=== PATIENT | male | born 1980 | race Caucasian/White ===

== ENCOUNTER 2019-04-15 18:51 | Emergency (ER) | payer BC, OTHER, SELFPAY ==
[2019-04-15] MEDS ORDERED: Lidocaine 1% (PF) 30 ML VIAL ONE (20:04)
--- NOTE | 2019-04-15 20:13 | RAD ---
LEFT HAND: 04/15/19 Three views. HISTORY: Injury to distal left second finger. There has been amputation of the distal aspect of the index finger. There is a fracture of the distal phalanx. The tuft has been amputated. No other osseous abnormality. IMPRESSION: Amputation of the distal aspect of the index finger with associated amputation of the tuft of the dis katia phalanx and fracture of the remaining portion of the distal phalanx. POS: OFF
[2019-04-15] MEDS ORDERED: Morphine 4 MG/ML VIAL ONE (21:09)
[2019-04-15] MEDS ORDERED: Ondansetron PF 4 MG/2 ML Vial ONE (21:09)
[2019-04-15] MEDS ORDERED: Adacel (T-DAP) 0.5 ML SYRINGE ONE (21:13)
== END 2019-04-15 21:35 | disposition home or self-care (01) ==
LOC: ERS 18:51
DX: S68.111A Complete traumatic metacarpophalangeal amputation of left index finger, initial encounter (principal); F32.9 Major depressive disorder, single episode, unspecified; W27.0XXA Contact with workbench tool, initial encounter
CPT/HCPCS: 90715; 96374; 96375; J0690; J2001; J2270; J2405

== ENCOUNTER 2019-04-16 06:38 | Day surgery (SDC) | payer OTHER ==
[2019-04-16] MEDS ORDERED: Fentanyl 100 MCG/2 ML VIAL ONE ×3 (08:03→12:52)
[2019-04-16] MEDS ORDERED: PROPOFOL 200 MG/20 ML VIAL ONE (10:31)
[2019-04-16] MEDS ORDERED: Dexamethasone 20 MG/5 ML VIAL ONE (10:31)
[2019-04-16] MEDS ORDERED: Ketorolac Tromethamine 30 MG/ML VIAL ONE (10:31)
[2019-04-16] MEDS ORDERED: Lidocaine 1% PF 5 ML VIAL ONE (10:31)
[2019-04-16] MEDS ORDERED: Ondansetron PF 4 MG/2 ML Vial ONE (10:31)
[2019-04-16] MEDS ORDERED: HYDROmorphone 0.5 MG/0.5 ML SYRINGE ONE (11:24)
[2019-04-16] MEDS ORDERED: PROPOFOL 20 ML ONE (12:08)
--- NOTE | 2019-04-16 13:27 | OP ---
DATE OF PROCEDURE: 04/16/2019 PREOPERATIVE DIAGNOSIS: Left index finger amputation distal phalanx secondary to band saw. POSTOPERATIVE DIAGNOSIS: Left index finger amputation distal phalanx secondary to band saw. PROCEDURE PERFORMED: Revision amputation. [employer] SPECIALIST: None. ANESTHESIOLOGIST: Blayne Sherwood MD ANESTHESIA: The patient received a LMA. ESTIMATED BLOOD LOSS: 5 mL. TOURNIQUET TIME: 12 minutes. ANTIBIOTICS: Ancef. COMPLICATIONS: None. HISTORY OF PRESENT ILLNESS: Mr. Rothman is a 38-year-old male, status post amputation of his index finger last night from a band saw. I discussed with the patient risks and benefits of revision amputation. I discussed our biggest concern is his nail bed as well as how functions and forms postoperative because I would shorten the limb, but given length to allow for manipulation and cover with his pulp out of the skin, but I would leave the nail bed if it looked okay. I try to excise the nail bed if I could discern it. I discussed the risks and benefits of surgery, pain, scar, bleeding, infection, damage to vital structures, decreased range or motion and strength, need for further surgeries, nail bed removal, loss of life or limb. The patient understood the risks and would like to proceed. DESCRIPTION OF PROCEDURE: Time-out was performed, designating the patient's left upper extremity as operative site based on site, consents, and marking. After time-out, the patient's upper extremity was prepped and draped with Betadine. We began with washing with a liter of water fluid and curetting the bone, cleaning up the entire area. After completion of that and curetting, I used those sharp Bovie cautery to bluntly dissect through the patient's tip of this, turned the patient 's finger, cleaned up and around the bone. At the completion of this, I rongeured off the bone to stable remnant and it looked like there was still nail plate, but I could discern the layers, which I left, I used after washing another liter, through being happy with it, the tourniquet left for 11 minutes while I was cleaning the bone and rongeuring the bone back. I used 4 chromic sutures, passing just through skin. On top, I did not completely close the nail at a plane to glide over the tip of the finger, but I did bring the palm pad up to ensure that there was a base, had a small dog-ear on one side, but otherwise I would likely reform as time goes on. I washed another 0.5 L through and placed soft tissue dressing. Tourniquet was only up for 12 minutes. I placed a soft tissue dressing, will stay in place for 7 days. The patient will be discharged home. He will follow up with me at that time to begin dressing changes. Job ID: [id number] MTDD
[2019-04-16] MEDS ORDERED: HYDROcodone/Acetaminophen 5/325 mg Tablet ONE (13:35)
--- NOTE | 2019-04-17 09:35 | HP ---
CHIEF COMPLAINT: Left index finger pain. HISTORY OF PRESENT ILLNESS: Mr. Rothman is a 38-year-old right-hand dominant male, presents after a circular saw kicked back, cut across his finger lacerating the tip of the index taking off majority of his nailbed. At about 6:50, the patient had 3 beers, lunched about 2:30 or 3. The patient presents to the ER, was cleaned up in the ER, received antibiotics and tetanus. PAST MEDICAL HISTORY: Diabetes in the past. PAST SURGICAL HISTORY: Gastric sleeve. The patient has history of depression. MEDICATIONS: Vitamins for his post gastric sleeve. SOCIAL HISTORY: The patient is an occasional alcohol use. Denies drug use. The patient smokes twice a day. He works in [employer] and is right handed. The patient's is at bedside. REVIEW OF SYSTEMS: Noncontributory. PHYSICAL EXAMINATION: VITAL SIGNS: Blood pressure 130/78, pulse 79, 98.2, pain is 7 to 10, 96% on room air. GENERAL: Alert and oriented male, in no acute distress, resting comfortably in bed. EXTREMITIES: Left upper extremity shows distal tip amputation oblique from radial ulnar taking off majority if the nail bed and exposed tuft. The patient has some plantar palm. He has some pad of his finger that is intact. Sensation is grossly intact. He has brisk cap refill. The patient was able to flex and extend at his DIP joint of his left index finger. DIAGNOSTIC DATA: The patient's radiographs show the distal tip amputation, just a tuft fracture with an intact DIP joint. Impression, partial amputation of left index finger distal phalanx tuft with nail bed resection. ASSESSMENT AND PLAN: I discussed with the patient given his n.p.o. status he will be unable to go until early in the morning. The patient elected to go home, received his antibiotics and tetanus, come back as an outpatient n.p.o. on-call to the OR tomorrow for a revision amputation of his left index finger. I discussed with the patient that his nail bed occasionally will have issues to include hook nails or corn nails as I am not able to completely eradicate the nail bed. I discussed that occasionally the patient's wound might not heal. I discussed that this is a neuropathic pain, that patients can sometimes have difficulty healing. I discussed I would wash, rongeur the bone back to allow for stable skin closure, remove the remainder of the nail plate, and close the skin. The patient understood risks and benefits of procedure and will be brought into the outpatient surgery in the morning for revision amputation of his left index finger. Job ID: [id number] MTDD
== END 2019-04-16 14:10 | disposition home or self-care (01) ==
LOC: SDC 06:38
PROVIDERS: ATTEND Orthopaedic Surgery
PROC: 0X6P0Z3 Detachment at Left Index Finger, Low, Open Approach (ICD-10-PCS; principal; 2019-04-16)
DX: S68.621A Partial traumatic transphalangeal amputation of left index finger, initial encounter (principal); E11.9 Type 2 diabetes mellitus without complications; F17.200 Nicotine dependence, unspecified, uncomplicated; W31.2XXA Contact with powered woodworking and forming machines, initial encounter
CPT/HCPCS: J0690; J1100; J1170; J1885; J2001; J2405; J2704; J3010